=== PATIENT | female | born 1990 | race Caucasian/White ===

== ENCOUNTER 2016-08-23 18:06 | Outpatient (CLI) | payer OTHER ==
[2016-08-23 18:46] VITALS: BMI 26.1
== END 2016-08-23 22:16 | disposition home or self-care (01) ==
LOC: FBCOUT 18:06 → FBC 18:06 → FBCOUT 22:16
PROVIDERS: ATTEND Advanced Practice Midwife
DX: O26.893 Other specified pregnancy related conditions, third trimester (principal); M54.5 Low back pain; Z3A.38 38 weeks gestation of pregnancy; V89.2XXA Person injured in unspecified motor-vehicle accident, traffic, initial encounter
CPT/HCPCS: 59025; 81002; G0463

== ENCOUNTER 2016-09-03 14:09 | Inpatient (IN) | payer OTHER ==
[2016-09-11] MEDS ORDERED: OXYTOCIN 10 UNITS/ML VIAL ONE (19:34)
[2016-09-11] MEDS ORDERED: LIDOCAINE Viscous 2% 15 ML UDCUP ONE (19:34)
[2016-09-11] MEDS ORDERED: IV START KIT ONE (19:34)
[2016-09-11] MEDS ORDERED: MINERAL OIL 25 ML BOT ONE (19:34)
[2016-09-11] MEDS ORDERED: SODIUM CHLORIDE 0.9% FLUSH 20 ML ONE (19:34)
[2016-09-11] MEDS ORDERED: LIDOCAINE 1% (PRES FREE) 30 ML VIAL ONE (19:34)
[2016-09-11] MEDS ORDERED: PUMP TUBING ONE (19:34)
[2016-09-11] MEDS ORDERED: OXYTOCIN IN LR 500 ML IV ONE ×2 (19:34→19:48)
[2016-09-11] MEDS ORDERED: LACTATED RINGERS 1,000 ML IV PRN (19:48)
[2016-09-11 20:28] LABS: HEMATOCRIT 35.3 % (37.0-47.0); HEMOGLOBIN 11.5 gm/l (12.0-16.0); MEAN CELL VOLUME 86.9 fl (81.0-99.0); MEAN CORPUSCULAR HEMOGLOBIN 28.3 pg (27.0-31.0); MEAN CORPUSCULAR HGB CONC 32.6 g/dl (33.0-37.0); RED CELL DISTRIBUTION WIDTH 12.8 % (11.5-14.5)
[2016-09-11 20:33] VITALS: BMI 26.8
[2016-09-11] MEDS ORDERED: ZOLPIDEM TARTRATE 5 MG TABLET PO PRN (20:42)
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
[2016-09-11] MEDS: MISOPROSTOL 25 MCG TABLET SL SCH (20:54)
[2016-09-12] MEDS: MISOPROSTOL 25 MCG TABLET SL SCH ×3 (01:00→19:21)
--- NOTE | 2016-09-12 09:42 | PDOC36 ---
Provider Note Subject: S: Hien has been sleeping throughout the night, occasionally feels mild cramping from the misoprostol. O: SVE: deferred Fetus: 130 baseline, moderate variability, accels present, decels absent Ctx: 14 ctx (via toco) in 30 minute period, palpate mild per RN VS: BP 122/70, HR 77, RR 16 A 26yo IUP at 41w1d Post-dates cervical ripening IOL, s/p 3 doses of misoprostol Fetus Category 1 GBS neg malposition P: Will reassess cervix before due for next SL misoprostol dose to determine next step in IOL. Pt currently remains a candidate for a 4th dose of misoprostol based on ctx pattern and FHTs. cEFM per misoprostol policy May eat breakfast 2hrs after misoprostol administration Epidural once in active labor per pt request Reassess in 4hrs or PRN
--- NOTE | 2016-09-12 12:20 | PDOC36 ---
Provider Note Subject: S: Hien has been feeling her contractions as cramping, rates them at a 6-7 on pain scale. Is interested in a SVE to assess progress and discussing next steps in IOL. O: SVE: 1.5cm/80%/-2, anterior, medium consistency. Mccann's score of 8. Fetus: 130 baseline, moderate variability, accels present, decels absent Ctx: q2-4min, palpate mild, some coupling A 26yo IUP at 41w1d Post-dates cervical ripening IOL, s/p 3 doses of misoprostol Fetus Category 1 GBS neg malposition P: Discussed next steps for IOL: increase miso to 75mcg, cooks balloon, or start pitocin. Recommended using cooks balloon to increase her dilation prior to starting pitocin, but pt was reluctant to try this and opts instead for pitocin. Risks/benefits of pitocin administration reviewed and pt have her verbal informed consent. Pitocin ordered. Will start once maintenance service supervisor allows. IA while waiting to start pitocin, then switch to cEFM Encourage position changes & walking to encourage rotation Epidural once in active labor per pt request Reassess in 2hrs or PRN
[2016-09-12] MEDS ORDERED: ACETAMINOPHEN 500 MG TABLET PO ONE (15:19)
[2016-09-12] MEDS: OXYTOCIN IN LR 500 ML IV PRN (16:25)
[2016-09-12] MEDS: LACTATED RINGERS 1,000 ML IV SCH ×2 (16:26→23:07)
[2016-09-12] MEDS ORDERED: HYDROXYZINE PAMOATE 50 MG CAPSULE PO ONE (20:19)
[2016-09-12] MEDS ORDERED: HYDROXYZINE PAMOATE 50 MG CAPSULE ONE (23:52)
[2016-09-13] MEDS ORDERED: ACETAMINOPHEN 500 MG TABLET PO ONE (00:07)
--- NOTE | 2016-09-13 01:00 | PDOC36 ---
Provider Note Subject: Progress Note Note: S/ Hien will sleep tonight with low dose pitocin. In the morning we have planned to re-evaluate for an increase in the pitocin. She has Vistaril tonight to help with rest. Regular diet until pitocin is increased. Pt requesting Tylenol for venous stasis in lower extremities. Also recommend CHUY hose or SCDS. Pt preference. O/ Cervical exam deferred FHR 130, accels, no decels, moderate variability Ctxs very occasional GBS Neg A/ Elective IOL Pitocin augmentation Cat 1 FHR P/ Regular diet Continue low dose pitocin overnight at 6mu/min Vistaril for sleep aid Plan on increasing pitocin in the morning CHUY hose or SCDS while in bed
[2016-09-13] MEDS: LACTATED RINGERS 1,000 ML IV SCH ×4 (09:18→23:40)
--- NOTE | 2016-09-13 15:21 | PDOC36 ---
Provider Note Subject: Progress Note Note: S/ Hien was able to sleep well last night with 50mg of Vistaril. Before she slept we had discussed a plan for continued IOL. So overnight she was on low dose pitocin at 6mu/min. Her ctxs were mild and regular at times. This morning we had planned to reassess her cervix and decide whether she would continue pitocin augmentation and/or a Cook balloon. Hien decided on a Cook balloon this afternoon and after we reviewed it's function she was open to trying this. The Cook balloon was placed with ease. Pt tolerated the procedure well, however , she was tearful during the procedure. She is feeling pressure to have the baby before her leaves on Sunday, and after explaining this may be in for 12 hours, was a further realization how long this process could take. She was reassured this may not take 12 hours and it can come out sooner of it is painful. O/ Cervix 270/-1, anterior, bloody show Cook balloon placed with 60mls in the uterine balloon and 40 mls in the vaginal balloon FHR CTXS Afebrile GBS neg A/ Elective IOL at 41 weeks Pitocin augmentation with Cook Balloon Latent labor Cat 1 FHR P/ Continue with balloon as long as tolerated or until it falls out Continue pitocin augmentation Assess coping and support emotionally Clear liquid diet Continue to progress towards a vaginal
[2016-09-13] MEDS ORDERED: PUMP TUBING ONE (16:30)
[2016-09-13] MEDS: OXYTOCIN IN LR 500 ML IV PRN (16:45)
[2016-09-13] MEDS ORDERED: HYDROXYZINE PAMOATE 50 MG CAPSULE PO ONE (21:06)
[2016-09-13] MEDS ORDERED: OXYTOCIN IN LR 500 ML IV PRN (21:07)
--- NOTE | 2016-09-13 21:28 | PDOC36 ---
Provider Note Subject: Labor Progress Note Note: S: Cook catheter came out shortly before assuming care of patient. Denies feeling regular contractions. Excited that there has been some change. Plans epidural once active. O: EFM: 130/moderate variability/accels present/decels absent [place]: no contractions SVE: 5-6/70/-2/ROT VS: BP 109/73, HR 91, T 36.8 A: IOL for postdates Cervical ripening with cook catheter, misoprostol Bishops score 9 FHR Cat 1 P: Restart pitocin augmentation. Reviewed risks and benefits and patient agrees. Discussed that we may not see more cervical change until complete effacement. Encouraged alternating between rest and relaxation. Side lying release performed on both sides. Vistaril 50 mg for rest.
[2016-09-14] MEDS: LACTATED RINGERS 1,000 ML IV SCH ×3 (06:59→09:13)
--- NOTE | 2016-09-14 11:48 | PDOC36 ---
Provider Note Subject: CNM Discharge note Note: S: Pt comfortable. Slept over night. Baby active. O: Minimal contractions on 20 mu/min of pitocin. Has had multiple doses of cervical ripening medications and cook balloon in addition to 2 rounds of pitocin to 20 mu/min without labor. Last exam was yesterday after cook balloon fell out- 570/-2 Vitals stable FHR reactive, catagory 1 A: Failed induction P: Home to await labor. Appt scheduled to try induction again at 42 weeks 09/17/16.
== END 2016-09-14 09:50 | disposition home or self-care (01) | DRG 782 ==
LOC: EDSTATUS 09-11 18:51 → FBC 09-11 18:52
PROVIDERS: ADMIT Registered Nurse; ATTEND Licensed Practical Nurse
PROC: 3E0P7GC Introduction of Other Therapeutic Substance into Female Reproductive, Via Natural or Artificial Opening (ICD-10-PCS; principal; 2016-09-11)
PROC: 4A1H74Z Monitoring of Products of Conception, Cardiac Electrical Activity, Via Natural or Artificial Opening (ICD-10-PCS; 2016-09-11)
DX: O48.0 Post-term pregnancy (principal); O32.9XX0 Maternal care for malpresentation of fetus, unspecified, not applicable or unspecified; O61.0 Failed medical induction of labor; Z3A.41 41 weeks gestation of pregnancy

== ENCOUNTER 2016-09-17 18:59 | Inpatient (IN) | payer OTHER ==
[2016-09-17 19:32] VITALS: BMI 27.1
[2016-09-17] MEDS ORDERED: IV START KIT ONE (19:35)
[2016-09-17] MEDS ORDERED: OXYTOCIN 10 UNITS/ML VIAL ONE (19:35)
[2016-09-17] MEDS ORDERED: MINERAL OIL 25 ML BOT ONE (19:36)
[2016-09-17] MEDS ORDERED: LIDOCAINE Viscous 2% 15 ML UDCUP ONE (19:36)
[2016-09-17] MEDS ORDERED: PUMP TUBING ONE (19:36)
[2016-09-17] MEDS ORDERED: LIDOCAINE 1% (PRES FREE) 30 ML VIAL ONE (19:36)
[2016-09-17] MEDS ORDERED: OXYTOCIN IN LR 500 ML IV ONE ×2 (19:36→19:54)
[2016-09-17] MEDS ORDERED: LACTATED RINGERS 1,000 ML ONE (19:36)
[2016-09-17] MEDS ORDERED: SODIUM CHLORIDE 0.9% FLUSH 20 ML ONE (19:37)
[2016-09-17] MEDS ORDERED: OXYTOCIN 10 UNITS/ML VIAL IM ONE (19:54)
[2016-09-17 20:07] LABS: HEMATOCRIT 33.9 % (37.0-47.0); HEMOGLOBIN 11.2 gm/l (12.0-16.0); MEAN CELL VOLUME 86.9 fl (81.0-99.0); MEAN CORPUSCULAR HEMOGLOBIN 28.7 pg (27.0-31.0); RED CELL DISTRIBUTION WIDTH 12.8 % (11.5-14.5)
[2016-09-17] MEDS ORDERED: DINOPROSTONE 10 MG SUP VG ONE ×2 (20:21→20:28)
[2016-09-17] MEDS ORDERED: HYDROXYZINE PAMOATE 50 MG CAPSULE PO ONE (20:38)
--- NOTE | 2016-09-17 22:23 | PCMAN ---
OB Admission Note - History : 1 Term: 0 : 0 Abortions (S&E): 0 Livin EDC:: 09/03/16 (By 18wk us and 11wk us) Gestational Age (weeks): 42 Days (#/7): 0 Admit Cervical Dilation:: 3 Admit Cervical Effacement (%):: 70 Admit Station:: -2 Admit Presentaton:: cephalic Membrane Status: Intact Contractions: No Heart Rate:: 120 (mod. variability/accels present/decels absent) Status:: Cat. I EFW:: 7.5lbs Summary of Course:: Onset to care at 18wks x 12 visits. JANNETH 09/03/16 by 18w5d u/s, consistent (by 2d ) with 11w3d u/s at [facility]. Pre Wt 142lbs, BMI: 22.9, TWG 23lbs. complicated by gestational thrombocytopenia, platelets 119 on admit. Stable from platelets 112, one week ago. Rh neg. GBS neg. Postdates testing JOSIAH 10.2 and reactive NSTs. She requested postdates IOL at 41wks d/t husbands training schedule. She was admitted and despite multiple cervical ripening and induction methods ( misoprostol, weber balloon, and pitocin up to 20mu x 2) she was counseled and discharged home with plan for IOL at 42wks. Hien agreed to the plan. She is supported by her Judd and desires an epidural for pain relief. - Labs Blood Type: O (-) negative Hct/Hgb:: 11.5/35/.3 Rubella Status: Equivocal GBS Status: Negative Abnormal Labs: Rubella Non-Immune/Equivocal, Other (Platelets on admit 119) Other Labs:: 1hr GTT 117 - Review of Systems ros neg - Physical Exam General: Afebrile Psych/Mental Status: Mood/Affect Appropriate, Judgment/Insight Intact, Bonding Well Neurological: Grossly Intact, Alert, Oriented x 4, Normal Gait, Normal Speech Lungs: Clear to Auscultation Bilaterally Cardiovascular: Regular Rate and Rhythm Genitourinary: Normal Female Genitalia Rectal Exam: Deferred Extremities: Full ROM Skin: Normal Color, Warm, Dry, Intact - Problems (1) Post-term Qualifiers: Post-term type: 40-42 weeks gestation Qualifier Code: (O48.0 ) Post-term Status: Acute Code: O48.0Assessment/Plan: A: 26yo with IUP at 42wks by 11wk and 18wk ultrasounds Post-dates Mild Gestational Thrombocytopenia platelets 119 on admit Membranes Intact, GBS neg Rh Neg FHT: Cat. I P: Admit to FBC Mccann score 7, reviewed options for induction. Recommended cervical ripening, misoprostol or cervidil. Plan made to proceed with cervidil. Encourage rest. Vistaril ordered to aid with rest. CHANGE MANAGER custom protection officer consulted regarding gestational thrombocytopenia, current platelet level does not contradict epidural placement when patient is in active labor. Re-assess in 12 hrs when cervidil is to be removed or PRN.
--- NOTE | 2016-09-18 01:21 | PDOC36 ---
Provider Note Subject: labor progress note Note: S: on hands and knees in bed. breathing through contractions. notes back pain is the worst part. O: VE: 4/70/-2 FHT: 120/moderate/accels present/decels absent ctx: q 1-2min/60sec/mild-mod with clear resting tone VSS A: at 42w1d mild gest. thrombocytopenia induction for postdates, cervical ripening membranes intact, gbs neg P: Cervidil removed due to contraction pattern and patient discomfort encouraged hydrotherapy, patient in tub, feels much better reassess in 2-4hrs as needed.
[2016-09-18] MEDS ORDERED: EPIDURAL PUMP SET ONE (09:33)
[2016-09-18] MEDS ORDERED: FENTANYL/ROPIVACAINE EPIDURAL 250 ML EP ONE (09:33)
[2016-09-18] MEDS ORDERED: ONDANSETRON 4 MG/2ML 2 ML VIAL IV PRN (10:05)
[2016-09-18] MEDS ORDERED: EPHEDRINE SULFATE 50 MG/ML 1ML VIAL IV PRN (10:05)
[2016-09-18] MEDS ORDERED: NALOXONE HCL 0.4 MG/ML VIAL IV PRN (10:05)
[2016-09-18] MEDS ORDERED: DIPHENHYDRAMINE HCL 50 MG/1 ML VIAL IV PRN (10:05)
[2016-09-18] MEDS ORDERED: SODIUM CHLORIDE 0.9% 500 ML IV PRN (10:05)
[2016-09-18] MEDS ORDERED: NALBUPHINE HCL 20 MG/ML AMP IV PRN (10:05)
[2016-09-18] MEDS ORDERED: LACTATED RINGERS 500 ML IV PRN (10:05)
[2016-09-18] MEDS ORDERED: METOCLOPRAMIDE HCL 5 MG/ML 2ML VIAL IV PRN (10:05)
[2016-09-18] MEDS ORDERED: EPIDURAL PROCEDURE TRAY ONE (10:14)
[2016-09-18] MEDS ORDERED: EPHEDRINE SULFATE UD SYR 25 MG 25 MG/5 ML SYRINGE IV ONE (10:14)
[2016-09-18] MEDS ORDERED: ROPIVACAINE 0.5% 30 ML VIAL ONE (10:14)
[2016-09-18] MEDS ORDERED: FENTANYL/ROPIVACAINE EPIDURAL 250 ML EP SCH (10:17)
[2016-09-18] MEDS: LACTATED RINGERS 1,000 ML IV SCH ×2 (10:39→13:02)
[2016-09-18] MEDS ORDERED: OXYTOCIN IN LR 500 ML IV PRN (10:40)
[2016-09-18] MEDS ORDERED: LACTATED RINGERS 1,000 ML IV SCH (10:45)
--- NOTE | 2016-09-18 12:40 | PDOC36 ---
Provider Note Subject: SROM, epidural, and pitocin labor note Note: S: Hien has gotten some sleep after cervidil wore off and she was more comfortable. She noted SROM at 0819 for clear fluid. She spent time up walking and sitting on the ball before becoming very painful and requesting an epidural. O: T:36.1 BP:92/54 HR:80 R:22 VE: 4.5/100/-1 at 0900 Ctx: q 4-6min/60-90sec FHT: 150/moderate variability/accels present, occasional variables to 120 rosa A: with IUP at 42w1d Induction of labor for postdates SROM x 2hrs, GBS neg, clear fluid FHT Cat. II for occasional variables P: Epidural ordered Encourage position changes Reviewed potential need for pitocin for continued induction of labor. Will initiate oxytocin administration when appropriate given FHT. Anticipate .
[2016-09-18] MEDS ORDERED: MISOPROSTOL 200 MCG TABLET PO ONE (18:55)
[2016-09-18] MEDS ORDERED: LANOLIN 50 APPLIC/7G TUBE TP PRN (20:50)
[2016-09-18] MEDS ORDERED: BENZOCAINE/MENTHOL 60 APPLIC/BOT TP PRN (20:50)
[2016-09-18] MEDS ORDERED: MAGNESIUM HYDROXIDE 30 ML UDCUP PO PRN (20:50)
[2016-09-18] MEDS ORDERED: CALCIUM CARBONATE 500 MG TAB.CHEW PO PRN (20:50)
[2016-09-18] MEDS ORDERED: ACETAMINOPHEN 325 MG TABLET PO PRN (20:50)
[2016-09-18] MEDS: IBUPROFEN 800 MG TABLET PO SCH (21:16)
--- NOTE | 2016-09-18 21:28 | PCMDEL ---
Delivery Note - Labor 1st stage (hr/min):: 8h23m 2nd stage (hr/min):: 0h59m 3rd stage (hr/min):: 0h24m Total (hr/min):: 9h46m Pushed (hr/min):: 0h59m - Delivery Delivery (Date): 09/18/16 Delivery (Time): 18:22 Infant Gender: Female Weight: 9 lb Length: 1 ft 8.5 in Presentation: Cephalic Position: OA Umbilical Cord: 3 Vessel Delayed Cord Clamping:: > 3 min 1 Minute Total: 9 5 Minute Total: 9 Placenta:: Spontaneous, madeline, intact, 3vc EBL:: 600ml Perineum:: left labia split, 1st deg vaginal lacs Suture:: 3-0 vicryl and 4-0 vicryl Anesthesia/Meds:: epidural Length ROM:: 10h3m Comments:: Hien made steady progress following cervidil cervical ripening, then pitocin induction of labor. FHT was Cat. I and II for occasional decelerations in the active phase. Once completely dilated, she pushed effectively for an hour to achieve of vigorous female . FOB Judd assisted with delivery of the infant after delivery of the head. OA to KENDRA. Apgars 9/9. placed on maternal abdomen for skin to skin bonding and drying. AMTSL was initiated. Cord clamped at 5min and cut by FOB. Small arteriole tears x 2 were noted to be bleeding briskly and were repaired prior to delivery of the placenta, which delivered spontaneously, intact, madeline, 3VC. Following delivery of placenta, brisk bleeding noted from atony. Fundus firm midline and at U. Straight cath for approx 150ml of urine and 400mcg misoprostol SL given for hemostasis of uterine bleeding. 1st deg vaginal lacerations repaired to approximation and hemostasis. EBL 600ml. Mom and baby stable.
[2016-09-19] MEDS: IBUPROFEN 800 MG TABLET PO SCH ×4 (03:07→22:51)
[2016-09-19] MEDS: HYDROCODONE/ACETAMINOPHEN 5/325MG TABLET PO PRN ×5 (04:28→23:30)
[2016-09-19 06:58] LABS: HEMATOCRIT 29.8 % (37.0-47.0); HEMOGLOBIN 9.7 gm/l (12.0-16.0)
[2016-09-19] MEDS: DOCUSATE SODIUM 100 MG CAPSULE PO PRN (08:44)
--- NOTE | 2016-09-19 17:09 | PDOC44 ---
- Subjective Day: 1 (22hrs ) Doing well overall. Her bottom is sore, so she's been taking pain meds on schedule, which helps. Reports lochia as starting to lighten. Has some concerns about -if baby is getting enough, latch (using shield), positioning. Happy with experience overall. Questions about discharging home today. Per RN, baby is not feeding well and the couplet could benefit from extra assistance throughout the night/morning. Reports Flatus, Reports Pain Tolerable, Reports , Reports Lochia Moderate, Reports Tolerating Regular Diet - Objective Temp Pulse Resp BP Pulse Ox 97.8 F 77 16 137/86 09/19/16 14:00 09/19/16 14:00 09/19/16 14:00 09/19/16 14:00 Lab Results 09/19/16 06:20 Hgb 9.7 L Hct 29.8 L Current Medications Generic Name Dose Route Start Last Admin Trade Name Freq PRN Reason Stop Dose Admin Acetaminophen 325 - 650 mg 09/18/16 20:50 Tylenol PO Q4H PRN Pain (Mild) Acetaminophen/Hydrocodone Bitart 1 - 2 tab 09/18/16 20:50 09/19/16 14:33 [place] 5/325 PO 1 tab Q4H PRN Administration Pain (Moderate) Benzocaine/Menthol 1 applic 09/18/16 20:50 Dermoplast TP PRN PRN Patient Comfort Calcium Carbonate/Glycine 500 - 1,000 mg 09/18/16 20:50 Tums PO BID PRN Indigestion Docusate Sodium 100 mg 09/18/16 20:50 09/19/16 08:44 Colace PO 100 mg DAILY PRN Administration Comfort Emollient Ointment 1 applic 09/18/16 20:50 09/19/16 11:29 [id number] TP 1 applic PRN PRN Administration sore nipples Ropivacaine/Fentanyl/NS 250 mls @ 0 mls/hr 09/18/16 10:17 Fentanyl 2 Mcg/Ml + Ropivacaine 0.125% Ep Bag EP EPI GALLO Protocol Per Protocol Ibuprofen 800 mg 09/18/16 20:50 09/19/16 14:33 Motrin PO 800 mg Q6H GALLO Administration Magnesium Hydroxide 30 ml 09/18/16 20:50 Milk Of Magnesia PO BEDTIME PRN Constipation Sodium Chloride 10 ml 09/18/16 20:50 09/18/16 21:16 Normal Saline 10ml Flush IV 10 ml PRN PRN Administration IV Flush - Physical Exam Psych/Mental Status: Mood/Affect Appropriate, Judgment/Insight Intact, Bonding Well Lungs: Clear to Auscultation Bilaterally Cardiovascular: Regular Rate and Rhythm Breast: Soft, Skin intact, Nipples Intact Fundus: Firm, Midline, Below Umbilicus Lochia: Moderate - Problems:Assessment/Plan (1) care and examination of lactating mother Status: AcuteAssessment/Plan: A: 26yo day 1 Lochia stable -challenges with latch P: Pt with questions about discharging home tonight. After much discussion about progress and challenges, pt agrees to stay and discharge tomorrow morning. Encouraged on-demand feeds, using nipple shield, hand expression and feeding immediately back to baby if able, call for help from RN for feeds, to see pt today or tomorrow prior to discharge. Discussed normal physiologic adaptations she and baby are making and can expect in the next 24-48hrs. Would like Rx for pump prior to discharge. Encouraged colace, ice packs, PO hydration for her bottom and to help facilitate BMs Anticipate discharge home tomorrow Disposition: Anticipate DC Home Tomorrow
[2016-09-20 08:27] VITALS: BP 107/66
[2016-09-20] MEDS: DOCUSATE SODIUM 100 MG CAPSULE PO PRN (08:34)
[2016-09-20] MEDS: HYDROCODONE/ACETAMINOPHEN 5/325MG TABLET PO PRN ×2 (09:13→11:18)
--- NOTE | 2016-09-20 10:06 | PDOC39B ---
Hospital Course: ADMIT DATE: 09/17/16 DISCHARGE DATE: 09/20/16 ADMISSION DIAGNOSES: Active Labor PROCEDURES: HISTORY OF PRESENT ILLNESS: 26 year old G1 T0 L0 at 42 weeks 1 days presenting with active labor. HOSPITAL COURSE: The patient was induced for postdates. Hien made steady progress following cervidil cervical ripening, then pitocin induction of labor. FHT was Cat. I and II for occasional decelerations in the active phase. Once completely dilated, she pushed effectively for an hour to achieve of vigorous female infant. SHRUTI Whaley assisted with delivery of the infant after delivery of the head. OA to KENDRA. Apgars 9/9. placed on maternal abdomen for skin to skin bonding and drying. AMTSL was initiated. Cord clamped at 5min and cut by FOB. Small arteriole tears x 2 were noted to be bleeding briskly and were repaired prior to delivery of the placenta, which delivered spontaneously, intact, madeline, 3VC. Following delivery of placenta, brisk bleeding noted from atony. Fundus firm midline and at U. Straight cath for approx 150ml of urine and 400mcg misoprostol SL given for hemostasis of uterine bleeding. 1st deg vaginal lacerations repaired to approximation and hemostasis. EBL 600ml. Mom and baby stable. recovery was uncomplicated. was initially difficult and she stayed two days for additional support. She is up ad suzan without issue to void. Her pain is well managed with PO medication and her bleeding is minimal. She is stable and ready for discharge. By day of discharge the patient is stable, well and ready to go home. - Physical Exam Vital Signs: Temp Pulse Resp BP Pulse Ox 98.0 F 63 18 107/66 09/20/16 08:23 09/20/16 08:23 09/20/16 08:23 09/20/16 08:23 General: Afebrile Psych/Mental Status: Mood/Affect Appropriate, Judgment/Insight Intact, Bonding Well Neurological: Grossly Intact Lungs: Clear to Auscultation Bilaterally Cardiovascular: Regular Rate and Rhythm Breast: Soft, Skin intact, Nipples Intact Fundus: Firm, Midline, Below Umbilicus Genitourinary: Normal Female Genitalia (Well approximated, hemostatic.) Lochia: Light Extremities: Full ROM Skin: Normal Color, Warm, Dry, Intact Wound: Well Approximated - Discharge Diagnosis (1) (normal spontaneous vaginal delivery) Status: AcuteAssessment/Plan: A: Day #2, s/p Exclusively Appropriate for discharge P: Reviewed handout and when to call CNM Encouraged skin to skin and exclusive , with BABIES support as needed RTC in 2wk, appt given, and 6wk appt Discharge to home - Discharge Plan Condition: Stable Disposition: Home Instruction Forms: Vaginal Discharge Instructions Additional Instructions: Midwifery 'After the ' handout given to patient. Alternate Ibuprofen and [place] (or Tylenol, but not [place] and Tylenol) as needed for pain control. Prescriptions: Hydrocodone/Acetaminophen [Hydrocodon-Acetaminophen 5-325] 1 tab PO Q4H PRN #20 PRN Reason: Pain Ibuprofen [IBUPROFEN 800 MG TABLET (SHF)] 800 mg PO Q6H PRN #30 tablet PRN Reason: Pain Follow-Up: Yola Schultz CNM [Certified Nurse Dietary Manager] - 10/02/16 1:00 pm (In [place] with Yola)
[2016-09-20] MEDS: IBUPROFEN 800 MG TABLET PO SCH (11:18)
[2016-09-20] MEDS ORDERED: MEASLES,MUMPS&RUBELLA VACCINE 0.5 ML VIAL SUB-Q V ONE (11:35)
== END 2016-09-20 12:12 | disposition home or self-care (01) | DRG 775 ==
LOC: FBC 18:59
PROVIDERS: ADMIT Advanced Practice Midwife; ATTEND Advanced Practice Midwife
PROC: 3E0P7GC Introduction of Other Therapeutic Substance into Female Reproductive, Via Natural or Artificial Opening (ICD-10-PCS; 2016-09-17)
PROC: 10E0XZZ Delivery of Products of Conception, External Approach (ICD-10-PCS; principal; 2016-09-18)
PROC: 0HQ9XZZ Repair Perineum Skin, External Approach (ICD-10-PCS; 2016-09-18)
DX: O48.0 Post-term pregnancy (principal); O99.12 Other diseases of the blood and blood-forming organs and certain disorders involving the immune mechanism complicating childbirth; O70.0 First degree perineal laceration during delivery; D69.6 Thrombocytopenia, unspecified; Z3A.42 42 weeks gestation of pregnancy; Z37.0 Single live birth

== ENCOUNTER 2016-09-25 14:02 | Outpatient (CLI) | payer OTHER | END 2016-09-25 14:03 | disposition home or self-care (01) | LOC: BABIESSH 14:02 | PROVIDERS: ATTEND Advanced Practice Midwife | DX: Z39.1 Encounter for care and examination of lactating mother (principal) ==